=== PATIENT | female | born 1980 | race Caucasian/White ===

== ENCOUNTER → 2024-11-12 13:21 | Outpatient (REF) | payer BC, SELFPAY | LOC: WDC 13:21 | PROVIDERS: ATTENDING PHYSICIAN Family Medicine | DX: Z12.31 Encounter for screening mammogram for malignant neoplasm of breast (principal) | CPT/HCPCS: 77063; 77067 ==

== ENCOUNTER → 2024-11-24 09:48 | Outpatient (REF) | payer BC, SELFPAY | LOC: WDC 09:48 | PROVIDERS: ATTENDING PHYSICIAN Family Medicine | DX: R92.8 Other abnormal and inconclusive findings on diagnostic imaging of breast (principal) | CPT/HCPCS: 76642 ==